=== PATIENT | female | born 1985 | race African-American/Black ===

== ENCOUNTER → 2016-11-02 | Day surgery (SDC) | payer OTHER | END | disposition home or self-care (01) | LOC: FAS 09:00 | DX: K29.51 Unspecified chronic gastritis with bleeding (principal); K21.9 Gastro-esophageal reflux disease without esophagitis; F17.210 Nicotine dependence, cigarettes, uncomplicated; Z88.0 Allergy status to penicillin; Z88.1 Allergy status to other antibiotic agents; Z79.899 Other long term (current) drug therapy; Z90.49 Acquired absence of other specified parts of digestive tract; Z98.51 Tubal ligation status; Z98.890 Other specified postprocedural states | CPT/HCPCS: 84703; 87077; 87205; 88305; 88312; J2405; J2704 ==